=== PATIENT | male | born 1990 | race Caucasian/White ===

== ENCOUNTER 2022-02-05 12:30 | Emergency (ER) | payer OTHER ==
[2022-02-05] MEDS ORDERED: Sodium Chloride 0.9% 10 ML Syringe FLUSH PRN (12:40)
[2022-02-05 13:43] LABS: CORONAVIRUS COVID-19 NAA NEGATIVE (NEGATIVE)
== END 2022-02-05 14:28 | disposition home or self-care (01) ==
LOC: JD.ED 12:30
DX: R07.89 Other chest pain (principal); Z20.822 Contact with and (suspected) exposure to COVID-19
CPT/HCPCS: 0240U; 36415; 71045; 80053; 84484; 85007; 85027; 85379; 93005; 99285; J3490